=== PATIENT | male | born 1970 | race Caucasian/White ===

== ENCOUNTER 2023-03-04 09:59 | Outpatient (CLI) | payer BC | END 2023-03-04 10:09 | disposition home or self-care (01) | LOC: LAB 09:59 | PROVIDERS: ATTEND Internal Medicine | DX: R73.09 Other abnormal glucose (principal); Z13.1 Encounter for screening for diabetes mellitus; N39.0 Urinary tract infection, site not specified; R79.89 Other specified abnormal findings of blood chemistry; Z13.228 Encounter for screening for other metabolic disorders; R94.6 Abnormal results of thyroid function studies; E07.9 Disorder of thyroid, unspecified; E78.5 Hyperlipidemia, unspecified; Z13.220 Encounter for screening for lipoid disorders; D50.9 Iron deficiency anemia, unspecified; N40.0 Benign prostatic hyperplasia without lower urinary tract symptoms ==